=== PATIENT | male | born 1960 | race Caucasian/White ===

== ENCOUNTER 2020-06-10 15:37 | Inpatient (IN) ==
[2020-06-10] MEDS ORDERED: Aspirin 81 MG TAB.CHEW PO ONE (15:54)
[2020-06-10] MEDS ORDERED: *HR* Ticagrelor 90 MG TABLET ONE (15:55)
[2020-06-10] MEDS ORDERED: *HR* Heparin 5,000 UNIT/ML VIAL IVP PRN ×2 (15:55)
[2020-06-10] MEDS ORDERED: Aspirin 81 MG TAB.CHEW ONE (15:55)
[2020-06-10] MEDS ORDERED: 0.9 % Sodium Chloride 500 ML IVC ONE (15:55)
[2020-06-10] MEDS ORDERED: *HR* Heparin 5,000 UNIT/ML VIAL ONE (15:55)
[2020-06-10] MEDS ORDERED: *HR* Heparin 5,000 UNIT/ML VIAL IVP ONE (15:55)
[2020-06-10] MEDS ORDERED: 0.9 % Sodium Chloride 1,000 ML ONE (15:55)
[2020-06-10] MEDS ORDERED: *HR* Ticagrelor 90 MG TABLET PO ONE (15:57)
[2020-06-10] MEDS ORDERED: 0.9 % Sodium Chloride 2,000 ML ONE (15:58)
[2020-06-10] MEDS ORDERED: Heparin 1,000 UNITS/500 mL 500 ML ONE (15:58)
[2020-06-10] MEDS ORDERED: ISOVUE-370 200 ML INFUS..BTL ONE ×2 (15:59→16:41)
[2020-06-10] MEDS ORDERED: *HR* Heparin 10,000 UNIT/10 ML VIAL ONE (15:59)
[2020-06-10] MEDS ORDERED: Nitroglycerin 1,000 MCG/10 ML VIAL IV ONE (15:59)
[2020-06-10] MEDS ORDERED: Heparin 25,000UNIT/250ML 1/2NS 25,000 UNIT/250 ML IV.SOLN IVC SCH (16:00)
[2020-06-10 16:03] LABS: Basophils # 0.1 K/mcL (0.0-0.2); Basophils % 0.7 %; Hematocrit 46.1 % (37.5-50.1); Hemoglobin 15.7 g/dL (12.9-16.9); Immature Granulocytes % 0.3 % (0-4); Lymphocytes # 3.7 K/mcL (0.6-4.6); Lymphocytes % 43.3 %; Mean Corpuscular HGB Conc 34.1 g/dL (31.6-35.5); Mean Corpuscular Hemoglobin 30.7 pg (28.0-33.3); Mean Corpuscular Volume 90.2 fL (83.0-100.0); Mean Platelet Volume 10.4 fL (9.4-12.4); Monocytes # 1.2 K/mcL (0.0-1.3); Monocytes % 13.9 %; Neutrophils # 3.6 K/mcL (1.6-8.9); Platelet Count 184 K/mcL (140-400); Red Blood Count 5.11 M/mcL (4.19-5.50); Red Cell Distribution Width 12.9 % (11.5-14.5); Segmented Neutrophils % 41.8 %; White Blood Count 8.6 K/mcL (4.3-11.1)
[2020-06-10 16:10] LABS: Prothrombin Time 11.4 Seconds (9.4-12.1)
[2020-06-10 16:13] LABS: Activated Partial Thrombo Time 29.9 Seconds (26.0-36.0)
[2020-06-10] MEDS ORDERED: *HR* Midazolam HCl 2 MG/2 ML VIAL ONE (16:14)
[2020-06-10] MEDS ORDERED: *HR* FentaNYL (PF) 100 MCG/2 ML VIAL ONE (16:14)
[2020-06-10 16:27] LABS: BUN/Creatinine Ratio 20 (6-26); Blood Urea Nitrogen 18 mg/dL (8-23); Calcium 9.6 mg/dL (8.6-10.3); Carbon Dioxide 20 mEq/L (23-29); Chloride 103 mEq/L (98-107); Glucose 134 mg/dL (70-105); Osmolality,Calculated 284 (280-300); Potassium 3.9 mEq/L (3.5-5.1); Sodium 135 mEq/L (136-145); Troponin I < 0.03 ng/mL (< 0.04); eGFR For African Americans > 60 (> 60); eGFR For Non-African Americans > 60 (> 60)
[2020-06-10] MEDS ORDERED: Perflutren Lipid Microsphere 1.3 ML in 0.9 % Sodium Chloride 8.7 ML IVP PRN (17:42)
[2020-06-10] MEDS ORDERED: Naloxone 0.4 MG/ML INJ IVP PRN (18:06)
[2020-06-10] MEDS: 0.9 % Sodium Chloride 1,000 ML IVC SCH (20:05)
[2020-06-10] MEDS ORDERED: *HR* Ticagrelor 90 MG TABLET PO SCH (21:00)
[2020-06-11] MEDS: 0.9 % Sodium Chloride 1,000 ML IVC SCH (01:14)
[2020-06-11] MEDS ORDERED: Acetaminophen 325 MG TABLET PO PRN ×2 (06:16→12:31)
[2020-06-11 06:47] LABS: Basophils % 0.6 %; Eosinophils % 0.2 %; Hematocrit 39.7 % (37.5-50.1); Immature Granulocytes % 0.3 % (0-4); Lymphocytes # 1.9 K/mcL (0.6-4.6); Lymphocytes % 29.7 %; Mean Corpuscular HGB Conc 33.8 g/dL (31.6-35.5); Mean Corpuscular Hemoglobin 30.7 pg (28.0-33.3); Mean Corpuscular Volume 90.8 fL (83.0-100.0); Mean Platelet Volume 10.6 fL (9.4-12.4); Monocytes # 0.9 K/mcL (0.0-1.3); Monocytes % 14.6 %; Neutrophils # 3.4 K/mcL (1.6-8.9); Platelet Count 156 K/mcL (140-400); Red Blood Count 4.37 M/mcL (4.19-5.50); Red Cell Distribution Width 12.8 % (11.5-14.5); Segmented Neutrophils % 54.6 %; White Blood Count 6.3 K/mcL (4.3-11.1)
[2020-06-11 06:58] LABS: BUN/Creatinine Ratio 20 (6-26); Blood Urea Nitrogen 17 mg/dL (8-23); Carbon Dioxide 23 mEq/L (23-29); Chloride 106 mEq/L (98-107); Glucose 117 mg/dL (70-105); Osmolality,Calculated 283 (280-300); Potassium 3.9 mEq/L (3.5-5.1); Sodium 135 mEq/L (136-145); eGFR For African Americans > 60 (> 60); eGFR For Non-African Americans > 60 (> 60)
[2020-06-11 07:01] LABS: Hemoglobin 13.4 g/dL (12.9-16.9)
[2020-06-11 07:11] LABS: Troponin I 0.05 ng/mL (< 0.04)
[2020-06-11] MEDS ORDERED: Nitroglycerin 0.4 MG TAB.SUBL SL PRN ×2 (08:38→12:31)
[2020-06-11] MEDS ORDERED: Aspirin 81 MG TAB.CHEW PO SCH (09:00)
[2020-06-11] MEDS ORDERED: *HR* Ticagrelor 90 MG TABLET PO SCH (09:00)
[2020-06-11] MEDS ORDERED: Perflutren Lipid Microsphere 1.3 ML in 0.9 % Sodium Chloride 8.7 ML IVP PRN (12:31)
[2020-06-11] MEDS ORDERED: Albuterol 2.5 MG/3 ML NEBULIZER IH PRN (12:31)
[2020-06-11] MEDS ORDERED: Naloxone 0.4 MG/ML INJ IVP PRN (12:31)
[2020-06-11] MEDS: *HR* Ticagrelor 90 MG TABLET PO SCH (19:49)
[2020-06-12] MEDS: Aspirin 81 MG TAB.CHEW PO SCH (08:31)
[2020-06-12] MEDS: *HR* Ticagrelor 90 MG TABLET PO SCH ×2 (08:32→21:56)
[2020-06-12] MEDS: Metoprolol XL (24 HR) Succ 25 MG TAB.ER.24H PO SCH (09:52)
[2020-06-13 07:29] VITALS: BP 105/77
[2020-06-13] MEDS: Metoprolol XL (24 HR) Succ 25 MG TAB.ER.24H PO SCH (07:53)
[2020-06-13] MEDS: *HR* Ticagrelor 90 MG TABLET PO SCH (07:54)
[2020-06-13] MEDS: Aspirin 81 MG TAB.CHEW PO SCH (07:54)
== END 2020-06-13 11:52 | disposition home or self-care (01) | DRG 251 ==
LOC: EMEROOARM 15:37 → ICNU 16:11 → 2NNU 06-11 18:29
PROVIDERS: ADMIT Internal Medicine Cardiovascular Disease; ATTEND Internal Medicine Cardiovascular Disease

== ENCOUNTER 2021-10-07 07:14 | Observation (INO) ==
[2021-10-07] MEDS ORDERED: Isovue-370 500 ML BOTTLE IVP ONE (07:27)
[2021-10-07 07:51] LABS: Basophils # 0.1 K/mcL (0.0-0.2); Eosinophils % 0.2 %; Hematocrit 42.6 % (37.5-50.1); Hemoglobin 14.6 g/dL (12.9-16.9); Immature Granulocytes % 0.4 % (0-4); Lymphocytes # 1.3 K/mcL (0.6-4.6); Lymphocytes % 26.5 %; Mean Corpuscular HGB Conc 34.3 g/dL (31.6-35.5); Mean Corpuscular Hemoglobin 30.9 pg (28.0-33.3); Mean Corpuscular Volume 90.3 fL (83.0-100.0); Monocytes # 0.5 K/mcL (0.0-1.3); Monocytes % 9.7 %; Neutrophils # 3.2 K/mcL (1.6-8.9); Platelet Count 240 K/mcL (140-400); Red Blood Count 4.72 M/mcL (4.19-5.50); Red Cell Distribution Width 12.4 % (11.5-14.5); Segmented Neutrophils % 62.2 %; White Blood Count 5.1 K/mcL (4.3-11.1)
[2021-10-07 07:57] LABS: BUN/Creatinine Ratio 16 (6-26); Blood Urea Nitrogen 16 mg/dL (8-23); Calcium 9.7 mg/dL (8.6-10.3); Carbon Dioxide 24 mEq/L (23-29); Chloride 97 mEq/L (98-107); Glucose 129 mg/dL (70-105); Osmolality,Calculated 279 (280-300); Potassium 3.9 mEq/L (3.5-5.1); Sodium 133 mEq/L (136-145); Troponin I < 0.03 ng/mL (< 0.04); eGFR For African Americans > 60 (> 60); eGFR For Non-African Americans > 60 (> 60)
[2021-10-07] MEDS ORDERED: Morphine Sulfate 2 MG/ML SYRINGE IVP STA (09:56)
[2021-10-07] MEDS ORDERED: Ondansetron 4 MG/2 ML VIAL IVP ONE (09:57)
[2021-10-07] MEDS ORDERED: Naloxone 0.4 MG/ML INJ IVP PRN (10:05)
[2021-10-07] MEDS ORDERED: Ondansetron 4 MG/2 ML VIAL IVP PRN (10:05)
[2021-10-07 10:38] LABS: Total Protein 7.6 g/dL (6.4-8.9)
[2021-10-07 13:16] LABS: RBC,Pleural Fluid < 2000 RBC/mcL
[2021-10-07 13:43] LABS: Total Protein,Pleural Fluid 3.9 g/dL
[2021-10-07 14:57] LABS: Appearance of Pleural Fl Clear (Clear)
[2021-10-07] MEDS ORDERED: *HR* HYDROmorphone (PF) 1 MG/ML SYRINGE IVP ONE (15:05)
[2021-10-07] MEDS: Sennosides/Docusate Sodium TABLET PO SCH (20:23)
[2021-10-07] MEDS: *HR* LORazepam 1 MG TABLET PO SCH (20:23)
[2021-10-08] MEDS: *HR* Enoxaparin 40 MG/0.4 ML SYRINGE SQ SCH (06:09)
[2021-10-08] MEDS: Sennosides/Docusate Sodium TABLET PO SCH ×2 (07:59→19:44)
[2021-10-08] MEDS: Aspirin 81 MG TAB.CHEW PO SCH (07:59)
[2021-10-08 10:17] LABS: Hemoglobin 13.7 g/dL (12.9-16.9); Immature Granulocytes % 0.2 % (0-4); Lymphocytes # 0.9 K/mcL (0.6-4.6); Lymphocytes % 22.1 %; Mean Corpuscular HGB Conc 35.1 g/dL (31.6-35.5); Mean Corpuscular Hemoglobin 31.2 pg (28.0-33.3); Mean Corpuscular Volume 88.8 fL (83.0-100.0); Mean Platelet Volume 9.7 fL (9.4-12.4); Monocytes # 0.3 K/mcL (0.0-1.3); Monocytes % 6.5 %; Neutrophils # 2.8 K/mcL (1.6-8.9); Platelet Count 217 K/mcL (140-400); Red Blood Count 4.39 M/mcL (4.19-5.50); Red Cell Distribution Width 12.4 % (11.5-14.5); Segmented Neutrophils % 70.2 %
[2021-10-08 10:37] LABS: BUN/Creatinine Ratio 19 (6-26); Blood Urea Nitrogen 17 mg/dL (8-23); Calcium 9.2 mg/dL (8.6-10.3); Carbon Dioxide 27 mEq/L (23-29); Chloride 98 mEq/L (98-107); Glucose 123 mg/dL (70-105); Osmolality,Calculated 277 (280-300); Potassium 3.7 mEq/L (3.5-5.1); Sodium 132 mEq/L (136-145); eGFR For African Americans > 60 (> 60); eGFR For Non-African Americans > 60 (> 60)
[2021-10-08] MEDS: *HR* OxyCODONE ER (12 HR) 10 MG TABLET PO SCH ×2 (14:21→23:20)
[2021-10-08] MEDS: *HR* LORazepam 1 MG TABLET PO SCH (19:43)
[2021-10-08] MEDS: *HR* HYDROmorphone (PF) 1 MG/ML SYRINGE IVP PRN (19:45)
[2021-10-09 04:22] LABS: Fluid Source for Cholesterol PLEURAL FLUID
[2021-10-09] MEDS: *HR* OxyCODONE ER (12 HR) 10 MG TABLET PO SCH ×2 (07:04→17:58)
[2021-10-09] MEDS: *HR* Enoxaparin 40 MG/0.4 ML SYRINGE SQ SCH (07:04)
[2021-10-09] MEDS: Aspirin 81 MG TAB.CHEW PO SCH (07:45)
[2021-10-09] MEDS: Sennosides/Docusate Sodium TABLET PO SCH ×2 (07:45→21:21)
[2021-10-09 08:06] LABS: Cholesterol,Body Fluid 72 mg/dL
[2021-10-09] MEDS ORDERED: polyethylene glycoL 3350 17 GM POWD.PACK PO PRN (13:28)
[2021-10-09] MEDS ORDERED: polyethylene glycoL 3350 17 GM POWD.PACK PO ONE (13:29)
[2021-10-09 15:15] VITALS: O2SAT 96
[2021-10-09] MEDS: *HR* HYDROmorphone (PF) 1 MG/ML SYRINGE IVP PRN (15:22)
[2021-10-09] MEDS ORDERED: Melatonin 3 MG TABLET PO SCH (21:00)
[2021-10-09] MEDS: *HR* LORazepam 1 MG TABLET PO SCH (21:21)
[2021-10-10 06:28] VITALS: BP 115/77; PULSE 77; TEMP 97.8
[2021-10-10] MEDS: *HR* Enoxaparin 40 MG/0.4 ML SYRINGE SQ SCH (06:30)
[2021-10-10] MEDS: *HR* OxyCODONE ER (12 HR) 10 MG TABLET PO SCH (06:31)
[2021-10-10] MEDS: Aspirin 81 MG TAB.CHEW PO SCH (10:25)
[2021-10-10] MEDS: *HR* LORazepam 1 MG TABLET PO SCH (10:27)
[2021-10-10] MEDS: Sennosides/Docusate Sodium TABLET PO SCH (10:28)
== END 2021-10-10 12:30 | disposition home or self-care (01) ==
LOC: EMEROOARM 07:14 → 3BNU 07:14
PROVIDERS: ADMIT Nurse Practitioner; ATTEND Internal Medicine

== ENCOUNTER 2022-04-14 11:27 | Observation (INO) ==
[2022-04-14] MEDS ORDERED: Ondansetron 4 MG/2 ML VIAL IVP ONE (13:01)
[2022-04-14] MEDS ORDERED: Iopamidol - 370 500 ML MLS IVP ONE (13:01)
[2022-04-14 13:38] LABS: Basophils % 0.3 %; Eosinophils % 0.2 %; Hematocrit 40.2 % (37.5-50.1); Hemoglobin 13.7 g/dL (12.9-16.9); Immature Granulocytes % 0.5 % (0-4); Lymphocytes # 0.9 K/mcL (0.6-4.6); Lymphocytes % 9.2 %; Mean Corpuscular HGB Conc 34.1 g/dL (31.6-35.5); Mean Corpuscular Hemoglobin 32.5 pg (28.0-33.3); Mean Corpuscular Volume 95.3 fL (83.0-100.0); Mean Platelet Volume 9.2 fL (9.4-12.4); Monocytes # 1.4 K/mcL (0.0-1.3); Monocytes % 14.2 %; Neutrophils # 7.3 K/mcL (1.6-8.9); Platelet Count 209 K/mcL (140-400); Red Blood Count 4.22 M/mcL (4.19-5.50); Red Cell Distribution Width 13.6 % (11.5-14.5); Segmented Neutrophils % 75.6 %; White Blood Count 9.6 K/mcL (4.3-11.1)
[2022-04-14 13:55] LABS: Calcium 9.2 mg/dL (8.6-10.3); Potassium 3.9 mEq/L (3.5-5.1)
[2022-04-14 18:30] LABS: Bilirubin,Urine Negative (Negative); Blood,Urine Trace (Negative); Clarity,Urine Clear (Clear); Color,Urine Yellow (Yellow); Glucose,Urine (UA) Normal (Normal); Ketones,Urine Trace mg/dL (Negative); Leukocyte Esterase,Urine Negative (Negative); Mucus,Urine Few per lpf (None-Few); Nitrite,Urine Negative (Negative); Protein,Urine 50 mg/dL (Neg-Trace); Specific Gravity,Urine > 1.030 (1.010-1.025); WBC,Urine 0-3 per hpf (0-3)
[2022-04-14] MEDS ORDERED: Naloxone 0.4 MG/ML INJ IVP PRN (19:29)
[2022-04-14] MEDS ORDERED: Ondansetron 4 MG/2 ML VIAL IVP PRN (19:45)
[2022-04-14] MEDS ORDERED: Acetaminophen 325 MG TABLET PO PRN (19:45)
[2022-04-14] MEDS ORDERED: Melatonin 3 MG TABLET PO PRN (19:45)
[2022-04-14] MEDS ORDERED: polyethylene glycoL 3350 17 GM POWD.PACK PO PRN (19:52)
[2022-04-14] MEDS: *HR* OxyCODONE Immed Rel 5 MG TABLET PO SCH (22:01)
[2022-04-14] MEDS: Sennosides/Docusate Sodium TABLET PO SCH (22:02)
[2022-04-14] MEDS: 0.9 % Sodium Chloride 1,000 ML IVC SCH (22:02)
[2022-04-15] MEDS: *HR* OxyCODONE Immed Rel 5 MG TABLET PO SCH ×2 (03:06→08:01)
[2022-04-15 05:39] LABS: Basophils % 0.4 %; Eosinophils # 0.2 K/mcL (0.0-0.6); Eosinophils % 2.2 %; Hematocrit 35.5 % (37.5-50.1); Immature Granulocytes % 0.1 % (0-4); Lymphocytes # 1.7 K/mcL (0.6-4.6); Mean Corpuscular HGB Conc 34.1 g/dL (31.6-35.5); Mean Corpuscular Hemoglobin 32.4 pg (28.0-33.3); Mean Corpuscular Volume 94.9 fL (83.0-100.0); Mean Platelet Volume 9.2 fL (9.4-12.4); Monocytes # 1.2 K/mcL (0.0-1.3); Monocytes % 18.4 %; Neutrophils # 3.6 K/mcL (1.6-8.9); Platelet Count 196 K/mcL (140-400); Red Blood Count 3.74 M/mcL (4.19-5.50); Red Cell Distribution Width 13.7 % (11.5-14.5); Segmented Neutrophils % 53.9 %; White Blood Count 6.7 K/mcL (4.3-11.1)
[2022-04-15 05:45] LABS: Hemoglobin 12.1 g/dL (12.9-16.9)
[2022-04-15 05:46] LABS: INR 1.3; Prothrombin Time 14.3 Seconds (9.4-12.1)
[2022-04-15 05:58] LABS: Calcium 8.5 mg/dL (8.6-10.3); Magnesium 2.1 mg/dL (1.6-2.6); Potassium 3.5 mEq/L (3.5-5.1)
[2022-04-15] MEDS: 0.9 % Sodium Chloride 1,000 ML IVC SCH (05:58)
[2022-04-15] MEDS: *HR* Enoxaparin 40 MG/0.4 ML SYRINGE SQ SCH (05:58)
[2022-04-15] MEDS ORDERED: Milk and Molasses Enema 200 ML RC ONE (07:55)
[2022-04-15] MEDS: Aspirin 81 MG TAB.CHEW PO SCH (08:00)
[2022-04-15] MEDS: Sennosides/Docusate Sodium TABLET PO SCH ×2 (08:00→20:06)
[2022-04-15] MEDS: Psyllium 1 PACKET POWD.PACK PO SCH ×3 (08:06→20:06)
[2022-04-15] MEDS: Piperacillin/Tazobactam 3.375 GM in 0.9 % Sodium Chloride Mini Bag 100 ML IVPB SCH ×2 (08:07→16:50)
[2022-04-15] MEDS: *HR* OxyCODONE ER (12 HR) 10 MG TABLET PO SCH (16:47)
[2022-04-15] MEDS ORDERED: *HR* OxyCODONE ER (12 HR) 10 MG TABLET PO SCH (18:00)
[2022-04-16] MEDS: Piperacillin/Tazobactam 3.375 GM in 0.9 % Sodium Chloride Mini Bag 100 ML IVPB SCH ×2 (00:12→08:39)
[2022-04-16] MEDS: *HR* OxyCODONE ER (12 HR) 10 MG TABLET PO SCH ×2 (00:13→08:11)
[2022-04-16] MEDS: *HR* Enoxaparin 40 MG/0.4 ML SYRINGE SQ SCH (05:31)
[2022-04-16 07:25] VITALS: BP 120/78; PULSE 94; TEMP 97.7; O2SAT 17
[2022-04-16] MEDS: Aspirin 81 MG TAB.CHEW PO SCH (08:11)
[2022-04-16] MEDS: Sennosides/Docusate Sodium TABLET PO SCH (08:11)
[2022-04-16] MEDS: Psyllium 1 PACKET POWD.PACK PO SCH (09:17)
== END 2022-04-16 11:55 | disposition home health service (06) ==
LOC: 3ANU 11:27 → EMEROOARM 11:27 → 3ANU 19:30
PROVIDERS: ADMIT Hospitalist; ATTEND Hospitalist